=== PATIENT | male | born 1975 | race Caucasian/White ===

== ENCOUNTER 2021-08-09 15:53 | Emergency (ER) | payer MEDICAID ==
[~2021-08-09] VITALS: Ht 182.9 cm; Wt 123.0 kg
[2021-08-09 17:01] LABS: BASOPHILS % 0.7 % (0.0-2.0); EOSINOPHILS % 0.9 % (0.0-5.0); HEMATOCRIT. 41.1 % (42.0-52.0); HEMOGLOBIN. 14.2 g/dL (14.0-18.0); LYMPHOCYTES % 23.4 % (20.0-50.0); MEAN CORPUSCULAR HEMOGLOBIN 31.1 pg (28.0-32.0); MEAN CORPUSCULAR VOLUME 89.8 fL (80.0-94.0); MEAN PLATELET VOLUME 8.5 fl (7.4-10.4); MONOCYTES % 8.3 % (2.0-8.0); NEUTROPHILS % 66.7 % (40.0-76.0); PLATELET 254 x1000/uL (130-400); RED BLOOD CELL COUNT 4.58 mill/uL (4.7-6.1); RED CELL DISTRIBUTION WIDTH 13.3 % (11.6-14.6)
[2021-08-09 17:07] LABS: CHLORIDE 105 mEq/L (98-107)
[2021-08-09] MEDS ORDERED: GABA-529 MT (17:25)
[2021-08-09 17:50] VITALS: BP 100/62
== END 2021-08-09 17:58 | disposition home or self-care (01) ==
LOC: ER 15:53
DX: E11.40 Type 2 diabetes mellitus with diabetic neuropathy, unspecified (principal); E11.65 Type 2 diabetes mellitus with hyperglycemia; Z91.14 Patient's other noncompliance with medication regimen; Z79.84 Long term (current) use of oral hypoglycemic drugs
CPT/HCPCS: 36415; 80053; 82962; 85025; 99283

== ENCOUNTER 2024-03-24 11:55 | Emergency (ER) | payer MEDICAID ==
[~2024-03-24] VITALS: Ht 182.9 cm; Wt 122.0 kg
[~2024-03-24 11:55] MED LIST: GABA-529 MT; GLIP5TAB22 MT; METF-414 MT
[2024-03-24 12:01] VITALS: TEMP 97.5; O2SAT 96
[2024-03-24] MEDS ORDERED: CEPH500C2 MT (12:57)
[2024-03-24 13:23] VITALS: BP 132/80; PULSE 74; RESP 16; O2SAT 99
[2024-03-30] MEDS ORDERED: HYDR-4009 PO (23:32)
[2024-03-30] MEDS ORDERED: LIP40 PO (23:32)
[2024-03-30] MEDS ORDERED: AMOX1TAB16 MT (23:32)
[2024-03-30] MEDS ORDERED: GABA-532 PO (23:32)
[2024-03-30] MEDS ORDERED: SULF1TAB48 MT (23:32)
[2024-04-01] MEDS ORDERED: LEVO750T68 MT (11:28)
== END 2024-03-24 13:25 | disposition home or self-care (01) ==
LOC: ER 11:55
DX: L03.032 Cellulitis of left toe (principal); E11.9 Type 2 diabetes mellitus without complications
CPT/HCPCS: 73660; 99283